=== PATIENT | male | born 1975 | race Caucasian/White ===

== ENCOUNTER → 2017-04-10 13:03 | Outpatient (CLI) | payer MEDICAID ==
[2017-04-10 17:06] LABS: BASOPHILS 0.8 % (0-2); EOSINOPHILS 2.4 % (0-7); HEMATOCRIT 41.8 % (42.0-54.0); HEMOGLOBIN 13.2 g/dL (13.5-17.5); IMMATURE GRANULOCYTES 0.2 % (0-5); MCH 27.3 pg (26.0-34.0); MCHC 31.6 g/dL (31.0-37.0); MCV 86.4 fL (80.0-100.0); MEAN PLATELET VOLUME 9.4 fL (7.4-10.4); MONOCYTES 10.8 % (2-11); NEUTROPHILS 52.8 % (40-80); PLATELET COUNT 518 10x3/uL (130-400); RBC 4.84 10x6/uL (4.20-6.10); RDW 18.3 % (11.5-14.5); WBC 4.9 10x3/uL (4.8-10.8)
[2017-04-10 17:45] LABS: ALBUMIN 4.7 g/dL (3.4-5.0); ANION GAP 13.7 mmol/L (8-16); BILIRUBIN - TOTAL 0.08 mg/dL (0.2-1.3); CALCIUM 8.7 mg/dL (8.5-10.1); CARBON DIOXIDE 30.2 mmol/L (21.0-32.0); CREATININE - SERUM 1.3 mg/dL (0.6-1.3); POTASSIUM - SERUM 4.9 mmol/L (3.5-5.1); PROTEIN - SERUM 8.1 g/dL (6.4-8.2)
== END | disposition home or self-care (01) ==
LOC: D.LABREF 13:03
PROVIDERS: Student in an Organized Health Care Education/Training Program
DX: B40.2 Pulmonary blastomycosis, unspecified (principal); R74.0 Nonspecific elevation of levels of transaminase and lactic acid dehydrogenase [LDH]; Z51.81 Encounter for therapeutic drug level monitoring; Z79.899 Other long term (current) drug therapy

== ENCOUNTER → 2017-04-16 14:53 | Outpatient (CLI) | payer MEDICAID | END | disposition home or self-care (01) | LOC: D.CT 14:53 | DX: B40.2 Pulmonary blastomycosis, unspecified (principal) ==

== ENCOUNTER → 2017-07-09 09:41 | Outpatient (CLI) | payer MEDICAID | END | disposition home or self-care (01) | LOC: D.RT 09:41 | DX: R06.02 Shortness of breath (principal) ==

== ENCOUNTER → 2018-01-16 18:02 | Outpatient (CLI) | payer MEDICAID ==
[2018-01-16 19:13] LABS: ALBUMIN 4.4 g/dL (3.4-5.0); BILIRUBIN - TOTAL 0.23 mg/dL (0.2-1.3); CALCIUM 9.4 mg/dL (8.5-10.1); CARBON DIOXIDE 24.6 mmol/L (21.0-32.0); CREATININE - SERUM 1.2 mg/dL (0.6-1.3); POTASSIUM - SERUM 4.6 mmol/L (3.5-5.1); PROTEIN - SERUM 8.2 g/dL (6.4-8.2)
== END | disposition home or self-care (01) ==
LOC: D.LABREF 18:02
PROVIDERS: Student in an Organized Health Care Education/Training Program
DX: B40.2 Pulmonary blastomycosis, unspecified (principal)

== ENCOUNTER → 2018-03-08 08:51 | Outpatient (CLI) | payer MEDICAID | END | disposition home or self-care (01) | LOC: D.CT 08:51 | DX: R91.8 Other nonspecific abnormal finding of lung field (principal) ==